=== PATIENT | male | born 1990 | race Caucasian/White ===

== ENCOUNTER 2020-08-21 22:08 | Emergency (ER) | payer SELFPAY ==
[2020-08-21 22:15] VITALS: BP 129/80; PULSE 109; TEMP 98.9; BMI 26.7
[2020-08-21] MEDS ORDERED: SODIUM CHLORIDE 1,000 ML IV STA (23:38)
== END 2020-08-22 02:14 | disposition left against medical advice (07) ==
LOC: JER 22:08
PROC: 3E0337Z Introduction of Electrolytic and Water Balance Substance into Peripheral Vein, Percutaneous Approach (ICD-10-PCS; principal; 2020-08-21)
DX: F14.10 Cocaine abuse, uncomplicated (principal)
CPT/HCPCS: 96360; 99285-25